=== PATIENT | female | born 1995 | race Caucasian/White ===

== ENCOUNTER → 2022-01-27 | Outpatient (CLI) | payer MEDICAID | LOC: LAB 15:23 | DX: U07.1 COVID-19 (principal) ==

== ENCOUNTER → 2022-02-10 | Outpatient (CLI) | payer MEDICAID ==
[2022-02-10 14:28] LABS: EOS # 0.02 K/mm3 (0.04-0.40); EOS % 0.4 % (1.0-5.0); HEMATOCRIT 38.5 % (37.0-47.0); LYMPH# 1.07 K/mm3 (1.50-4.00); MEAN CELL VOLUME 88 fl (78-100); MEAN CORPUSCULAR HEMOGLOBIN 30 pg (27-31); MEAN CORPUSCULAR HGB CONC 34 g/dL (33-37); MEAN PLATELET VOLUME 9.3 fl (7.4-10.4); MONO # 0.85 K/mm3 (0.20-0.80); PLATELET COUNT 214 K/mm3 (130-400); RED BLOOD COUNT 4.36 M/mm3 (4.10-5.30); RED CELL DISTRIBUTION WIDTH 12.4 % (11.5-14.5); WHITE BLOOD COUNT 5.3 K/mm3 (4.8-10.8)
[2022-02-10 14:38] LABS: POTASSIUM 3.6 mmol/L (3.5-5.1)
[2022-02-10 14:39] LABS: CALCIUM 9.1 mg/dL (8.3-10.5)
[2022-02-10 14:40] LABS: TOTAL PROTEIN 7.3 g/dL (6.4-8.3)
[2022-02-10 14:42] LABS: TOTAL BILIRUBIN 0.4 mg/dL (0.2-1.2)
[2022-02-10 15:15] LABS: D-DIMER 0.65 mg/L FEU (0.15-0.50)
== END ==
LOC: LAB 14:13
PROVIDERS: Nurse Practitioner Family
DX: J20.9 Acute bronchitis, unspecified (principal); U09.9 Post COVID-19 condition, unspecified

== ENCOUNTER → 2022-05-13 | Outpatient (CLI) | payer MEDICAID | LOC: LAB 08:38 | DX: J02.9 Acute pharyngitis, unspecified (principal) ==